=== PATIENT | female | born 1975 | race Asian ===

== ENCOUNTER → 2016-08-24 | Outpatient (CLI) | payer OTHER ==
--- NOTE | 2016-08-24 10:22 | DIAGNOSTIC IMAGING REPORT ---
ULTRASOUND OF THE THYROID GLAND CLINICAL HISTORY: Papillary carcinoma of the thyroid gland. COMPARISON STUDY: Thyroid ultrasound dated 01/13/2016. TECHNIQUE: Real-time, grayscale, and color flow sonography of the thyroid gland is performed utilizing a high-frequency linear transducer. Images are reviewed in the transverse and longitudinal planes. FINDINGS: Right lobe: The right lobe of the thyroid gland is normal in size and homogeneous in echotexture, measuring 4.6 x 1.2 x 1.9 cm. Left lobe: The left lobe of the thyroid gland is diminutive and measures 2.4 x 0.6 x 0.8 cm. Isthmus: The thyroid isthmus is normal in appearance and measures 0.2 cm in AP diameter. IMPRESSION: 1. The right lobe of the thyroid gland is normal in appearance. 2. The left lobe of the thyroid gland appears diminutive, possibly secondary to postoperative change. 3. No discrete thyroid lesion is identified. Electronically signed by: Damion Bailey M.D. 08/24/2016 10:20 AM Dictated Date/Time: 08/24/2016 10:18 AM
[2016-08-24 12:48] LABS: THYROID STIMULATING HORMONE 1.33 uIu/ml (0.300-4.500)
[2016-08-31 19:53] LABS: THYROGLOBULIN 4.5 NG/ML (2.8-40.9)
== END | disposition home or self-care (01) ==
LOC: C.ULTR 09:34
PROVIDERS: ATTEND Internal Medicine Endocrinology, Diabetes & Metabolism
DX: C73 Malignant neoplasm of thyroid gland (principal)

== ENCOUNTER → 2016-09-23 | Outpatient (CLI) | payer OTHER ==
[2016-09-23 12:37] LABS: THYROID STIMULATING HORMONE 0.999 uIu/ml (0.300-4.500)
== END | disposition home or self-care (01) ==
LOC: C.LAB1850 10:38
PROVIDERS: ATTEND Internal Medicine Endocrinology, Diabetes & Metabolism
DX: C73 Malignant neoplasm of thyroid gland (principal)